=== PATIENT | female | born 1990 | race Caucasian/White ===

== ENCOUNTER 2019-06-13 07:30 | Day surgery (SDC) | payer OTHER ==
[2019-06-10 10:26] LABS: BASOPHILS 0.4 % (0-2); EOSINOPHILS 2.1 % (0-7); HEMATOCRIT 37.1 % (36.0-48.0); HEMOGLOBIN 12.8 g/dL (12-16); IMMATURE GRANULOCYTES 0.3 % (0-5); LYMPHOCYTES 27.2 % (15-50); MCHC 34.5 g/dL (31.0-37.0); MCV 86.9 fL (80.0-100.0); MEAN PLATELET VOLUME 10.6 fL (7.4-10.4); MONOCYTES 4.9 % (2-11); NEUTROPHILS 65.1 % (40-80); RBC 4.27 10x6/uL (4.00-5.40); RDW 13.5 % (11.5-14.5); WBC 6.7 10x3/uL (4.8-10.8)
[2019-06-10 10:35] LABS: PLATELET COUNT 191 10x3/uL (130-400)
[~2019-06-13] VITALS: Ht 170.2 cm; Wt 106.1 kg
[~2019-06-13 07:30] MED LIST: BENADRYL25 M1 PO; BUPROPION XL150 MG PO; DEMEROL50 MG PO; IBUPROFEN600 MG PO; MOTRIN600 MG PO; PERCOCET 5-3251 TAB PO; PRENATAL COMPLE1 TAB PO; PRENAVITE1 TAB PO; TYLENOL325 MG PO
[2019-06-13] MEDS ORDERED: MELATONIN 3 MG1 TAB PO (08:24)
[2019-06-13 08:26] VITALS: BP 133/80; Ht 170.2 cm; Wt 106.1 kg
[2019-06-13 08:38] LABS: HCG URINE NEGATIVE (NEGATIVE)
--- NOTE | 2019-06-13 09:41 | NUR ---
DR. JARRETT NOTIFIED AND REVIEWED PT'S BEHAVIOR AND ASSESSMENT RESULTS. PT IS A LOW RISK PER DR. JARRETT. DR. JARRETT STATED TO GIVE PT RESOURCES AT THIS TIME. NO FURTHER ORDERS AT THIS TIME. RESOURCES REVIEWED WITH PT AND SHE VERBALIZED UNDERSTANDING.
--- NOTE | 2019-06-13 13:52 | NUR ---
PT DC INSTRUCTIONS REVIEWED AT THIS TIME, PT VERBALIZES UNDERSTANDING. PT IV REMOVED AT THIS TIME NO REDNESS OR SWELLING NOTED AT SITE.
--- NOTE | 2019-06-13 14:00 | NUR ---
PT LEAVING OPS AT THIS TIME VIA WC. NAD NOTED.
--- NOTE | 2019-06-14 08:07 | OP ---
PATIENT NAME: JOCY HINOJOSA MEDICAL RECORD: [id number] :89 LOCATION:D.OPS ADMISSION DATE: SURGEON: CECIL AKBAR MD DATE OF OPERATION: 06/13/2019 PREOPERATIVE DIAGNOSIS: Chronic pelvic pain. POSTOPERATIVE DIAGNOSES: 1. Pelvic pain. 2. Suspect adenomyosis. 3. Active endometriosis. PROCEDURE: Diagnostic laparoscopy. SURGEON: Cecil Akbar MD ANESTHESIOLOGIST: Dr. Branham. ANESTHETIC: General. FINDINGS: Uterus is enlarged and boggy. Ovaries are unremarkable. Tubes are unremarkable. On the left side wall and below the ovarian fossa, there is a clear blister lesion that is consistent with early active endometriosis. SPECIMENS REMOVED: None. ESTIMATED BLOOD LOSS: Minimal. FLUIDS: 300 cc lactated Ringer's. URINE OUTPUT: Quantity sufficient void prior to this procedure. COMPLICATIONS: None. DRAINS: None. INDICATIONS: The patient is a 29-year-old female with chronic pelvic pain. The patient also suffers from dysmenorrhea. The patient is consented for diagnostic laparoscopy and any indicated procedure. Risks, benefits and limitations discussed. DESCRIPTION OF PROCEDURE: After informed consent was assured, the patient was taken to the operating room, anesthetic was obtained without difficulty. The patient was prepped and draped. An incision was made in the umbilicus. Through this, a 5-mm port was inserted, pneumoperitoneum developed and the patient was placed in Trendelenburg position. Accessory ports now placed 2 fingerbreadths above the midline. Using a blunt probe, the bowel swept free of the pelvis. Pelvis with the above findings. Due to the location of the endometriosis, fulguration was not attempted. The patient has a quick survey of the upper abdomen and all the anatomy appears unremarkable. The accessory ports were removed under direct visualization and then the primary port was removed after release of pneumoperitoneum. All sites closed with subcuticular stitch. Dermabond was applied. Sponge, lap, needle counts were correct times 2. TRANSINT:[id number] Voice Confirmation ID: [id number] DOCUMENT ID: [id number] OPERATIVE REPORT [id number] JOCY HINOJOSA CECIL AKBAR MD at 0807 CC: [id number] DICTATION DATE: 06/13/19 1202 BEST WORKER: 06/13/19 1211 DEP SDC 06/13/19 [facility] [address] [place] [address]
== END 2019-06-13 14:00 | disposition home or self-care (01) ==
LOC: D.OPS 07:30 → D.PAN 07:30 → D.OPS 09:30 → D.PAN 09:35 → D.OPS 09:35
PROVIDERS: ATTEND Obstetrics & Gynecology
DX: N94.6 Dysmenorrhea, unspecified (principal); N85.2 Hypertrophy of uterus; N80.3 Endometriosis of pelvic peritoneum; Z01.812 Encounter for preprocedural laboratory examination